=== PATIENT | female | born 1940 | race Caucasian/White ===

== ENCOUNTER 2017-11-24 13:28 | Day surgery (SDC) | payer MEDICARE, OTHER ==
[2006-03-29 14:52] VITALS: BP 154/82
[~2017-11-24] VITALS: Ht 152.4 cm; Wt 45.7 kg
[~2017-11-24 13:28] MED LIST: ACIPHEX20 MG PO; ADVAIR 250/28 DISKU1 IH; AMOXICILLIN 8751 TAB PO; ASACOL 400400 MG/TAB PO; CALCIUM 500500 M2 PO; CALCIUM 600MG+D1 TAB PO; CALCIUM CHELAT200 MG PO; DIFLUCAN 100MG100 MG PO; DIFLUCAN200 MG PO; FLONASE NASAL S16 GM NAS; FLUTICASON0.05 MG/Ac NS; FOSAMAX5 MG PO; IMURAN 50MG TAB50 MG PO; IRON TABLETS325 MG PO; LEVAQUIN 5500 MG/TA1 PO; LEVAQUIN 750MG750 M1 PO; LEVAQUIN 750MG750 MG PO; LIALDA 1.2 GM1.2 GM PO; MOTRIN 200200 MG/TAB PO; NATURAL SENNA8.6 MG PO; NEXIUM 40MG40 MG PO; NORCO 325 MG-51 TAB PO; NORCO 325 MG-7.1 TAB PO; NORCOELIX PO; OYSTER CALCIUM500 M1 PO; PHENERGAN W/CO120 M1 PO; PREDNISONE20 MG PO; REGLAN 10MG10 MG/TAB PO; RT ADVAIR 128 DISKUS IH; RT ADVAIR 228 DISKUS IH; SIMPONI50 MG/0.5 IM; SINGULAIR10 MG PO; VENTOLIN0.09 MG IH; VITAMIN C500 MG PO; VITAMIN D1000 IU PO; ZITHROMAX500 M2 PO; ZYRTEC 10MG10 MG PO; [UNRECOGNIZED DRUG - OTHER] PO
[2017-11-24 14:04] VITALS: BP 137/76; PULSE 73; TEMP 97.7
[2017-11-24] MEDS ORDERED: VITAMIN C500 MG PO (14:15)
[2017-11-24] MEDS ORDERED: ACIPHEX20 MG PO (14:15)
[2017-11-24] MEDS ORDERED: SINGULAIR 110 MG/TAB PO (14:15)
[2017-11-24] MEDS ORDERED: FOSAMAX 70MG TA70 MG PO (14:16)
[2017-11-24] MEDS ORDERED: VANCOCIN H125 MG/CAP PO (14:17)
[2017-11-24] MEDS ORDERED: NORCO 325 MG-51 TAB PO (14:17)
[2017-11-24] MEDS ORDERED: LIALDA 1.2 GM1.2 GM PO (14:17)
[2017-11-24 15:10] VITALS: BP 115/72; PULSE 71; TEMP 97.8
[2017-11-24 15:15] VITALS: BP 113/88; PULSE 83
[2017-11-24 15:30] VITALS: BP 125/79; PULSE 70
== END 2017-11-24 15:45 ==
LOC: SDCO 13:28
DX: K51.00 Ulcerative (chronic) pancolitis without complications (principal); A04.72 Enterocolitis due to Clostridium difficile, not specified as recurrent; K52.9 Noninfective gastroenteritis and colitis, unspecified; J45.909 Unspecified asthma, uncomplicated; K21.9 Gastro-esophageal reflux disease without esophagitis; D64.9 Anemia, unspecified; Z79.899 Other long term (current) drug therapy
CPT/HCPCS: J2250; J3010

== ENCOUNTER 2017-12-11 10:38 | Emergency (ER) | payer MEDICARE, OTHER ==
[2006-03-29 14:52] VITALS: BP 154/82
[~2017-12-11] VITALS: Ht 149.9 cm; Wt 44.5 kg
[~2017-12-11 10:38] MED LIST changes: +FOSAMAX 70MG TA70 MG PO; +SINGULAIR 110 MG/TAB PO; +VANCOCIN H125 MG/CAP PO
[2017-12-11 11:20] LABS: HEMATOCRIT 38.2 % (37.0-47.0); HEMOGLOBIN 12.9 g/dl (12.5-16.0); MEAN CELL VOLUME 85 fl (80.0-100.0); MEAN CORPUSCULAR HEMOGLOBIN 29 pg (27.0-31.0); MEAN CORPUSCULAR HGB CONC 34 g/dl (33.0-37.0); MEAN PLATELET VOLUME 11.1 fl (7.4-10.4); PLATELET COUNT 196 K/mm3 (130-400); RED BLOOD COUNT 4.49 M/mm3 (4.10-5.30); REDCELL DISTRIBUTION WIDTH-CV 15.9 % (11.5-14.5)
[2017-12-11 11:35] LABS: ALBUMIN 3.2 gm/dL (3.5-5.0); BILIRUBIN,TOTAL 0.8 mg/dL (0.0-1.0); CALCIUM 8.6 mg/dL (8.4-10.2); CREATININE, serum 1.04 mg/dL (0.52-1.25); POTASSIUM 3.9 mmol/L (3.4-5.0); TOTAL PROTEIN 6.9 gm/dL (6.4-8.2)
[2017-12-11 11:51] LABS: C-REACTIVE PROTEIN 26.3 mg/dL (0.0-0.9)
[2017-12-11 12:54] LABS: BAND 36 % (0-10); LYMPHOCYTE 1 % (20.0-51.0); NEUTROPHILS 62 % (42.0-75.2); PLATELET ESTIMATE NORMAL (NORMAL)
[2017-12-11] MEDS ORDERED: LEVAQUIN 750MG750 M1 PO (13:27)
[2017-12-11 13:36] VITALS: BP 143/76; PULSE 120; TEMP 99.8
== END 2017-12-11 13:38 | disposition home or self-care (01) ==
LOC: COL.ER 10:38
PROVIDERS: Emergency Medicine
DX: J18.9 Pneumonia, unspecified organism (principal); E87.1 Hypo-osmolality and hyponatremia; F17.210 Nicotine dependence, cigarettes, uncomplicated; Z79.52 Long term (current) use of systemic steroids
CPT/HCPCS: J2270; J2405; J7030; Q9967

== ENCOUNTER 2018-06-29 10:41 | Day surgery (SDC) | payer MEDICARE, OTHER ==
[2006-03-29 14:52] VITALS: BP 154/82
[~2018-06-29] VITALS: Ht 152.4 cm; Wt 50.5 kg
[2018-06-29] MEDS ORDERED: PRILOSEC 20MG20 MG PO (11:07)
[2018-06-29] MEDS ORDERED: IMURAN 50MG TAB50 MG PO (11:10)
[2018-06-29] MEDS ORDERED: RT ADVAIR 228 DISKUS IH (11:12)
[2018-06-29] MEDS ORDERED: PROAIR HFA0.09 MG/AC IH (11:14)
[2018-06-29] MEDS ORDERED: NYSTATIN OR100 MU/ML PO (11:21)
[2018-06-29] MEDS ORDERED: OS-CAL 500 + D1 TAB PO (11:21)
[2018-06-29 11:45] VITALS: BP 151/101; PULSE 72; TEMP 98
[2018-06-29 12:55] VITALS: BP 128/73; PULSE 75; TEMP 98
[2018-06-29 13:10] VITALS: BP 115/85; PULSE 70
[2018-06-29 13:25] VITALS: BP 130/70; PULSE 72
== END 2018-06-29 13:45 | disposition home or self-care (01) ==
LOC: SDCO 10:41
DX: K21.9 Gastro-esophageal reflux disease without esophagitis (principal); K44.9 Diaphragmatic hernia without obstruction or gangrene; R07.9 Chest pain, unspecified; K51.90 Ulcerative colitis, unspecified, without complications; Z79.899 Other long term (current) drug therapy; J45.909 Unspecified asthma, uncomplicated; D64.9 Anemia, unspecified; M81.0 Age-related osteoporosis without current pathological fracture; I49.9 Cardiac arrhythmia, unspecified
CPT/HCPCS: J2250; J3010; J7030

== ENCOUNTER → 2020-12-09 | Outpatient (CLI) | payer MEDICARE, OTHER ==
[~2020-12-09] MED LIST changes: +NYSTATIN OR100 MU/ML PO; +OS-CAL 500 + D1 TAB PO; +PRILOSEC 20MG20 MG PO; +PROAIR HFA0.09 MG/AC IH
== END ==
LOC: COL.CARD 11:30
DX: R00.2 Palpitations (principal)

== ENCOUNTER → 2020-12-17 | Outpatient (CLI) | payer MEDICARE, OTHER | LOC: COL.VAS 13:53 | DX: R55 Syncope and collapse (principal); R42 Dizziness and giddiness; R00.2 Palpitations ==

== ENCOUNTER → 2021-01-29 | Outpatient (CLI) | payer MEDICARE, OTHER | LOC: COL.VAS 12:20 | DX: I08.0 Rheumatic disorders of both mitral and aortic valves (principal); I25.3 Aneurysm of heart; I49.3 Ventricular premature depolarization ==

== ENCOUNTER 2021-06-09 16:52 | Outpatient (RCR) | payer MEDICARE, OTHER | END 2021-07-09 | disposition home or self-care (01) | LOC: WSST | DX: R13.0 Aphagia (principal); K21.9 Gastro-esophageal reflux disease without esophagitis ==

== ENCOUNTER → 2021-06-24 | Outpatient (CLI) | payer MEDICARE, OTHER | LOC: COL.RAD 09:12 | DX: K51.919 Ulcerative colitis, unspecified with unspecified complications (principal); K21.9 Gastro-esophageal reflux disease without esophagitis ==

== ENCOUNTER 2023-07-01 11:28 | Inpatient (IN) | payer MEDICARE, OTHER ==
[~2023-07-01] VITALS: Ht 144.8 cm; Wt 33.1 kg
[~2023-07-01 11:28] MED LIST changes: +DOXYCYCLINE 10100 MG PO; +PRIL40 PO; +VITAMIN D362.5 MC1 PO; +ZOFRAN ODT4 MG PO; +ZOFRAN8 MG PO
[2023-07-01 12:52] LABS: BASO % 0.2 % (0.0-2.0); EOS % 0.1 % (0.0-4.0); GRAN # 10.3 K/mm3 (1.4-6.5); GRAN % 85.4 % (42.2-75.2); HEMOGLOBIN 10.6 g/dl (12.5-16.0); LYMPH # 1.2 K/mm3 (1.2-3.4); MEAN CELL VOLUME 88 fl (80.0-100.0); MEAN CORPUSCULAR HEMOGLOBIN 28 pg (27-31); MEAN CORPUSCULAR HGB CONC 32 g/dl (33.0-37.0); MEAN PLATELET VOLUME 9.3 fl (7.4-10.4); MONO # 0.5 K/mm3 (0.1-0.6); MONO % 3.9 % (1.7-9.3); PLATELET COUNT 368 K/mm3 (130-400); REDCELL DISTRIBUTION WIDTH-CV 16.5 % (11.5-14.5)
[2023-07-01 12:57] LABS: HEMATOCRIT 33.5 % (37.0-47.0)
[2023-07-01 13:06] LABS: ALANINE AMINOTRANSFERASE 6 U/L (0-55); ALBUMIN 2.1 gm/dL (3.4-4.8); ALKALINE PHOSPHATASE 96 U/L (40-150); ANION GAP 11 mmol/L (7-16); AST,SGOT 16 U/L (5-34); BILIRUBIN,TOTAL 0.3 mg/dL (0.2-1.2); BLOOD UREA NITROGEN 10 mg/dL (10-20); C-REACTIVE PROTEIN 8.32 mg/dL (0.00-0.50); CALCIUM 8.9 mg/dL (8.4-10.2); CARBON DIOXIDE 33 mmol/L (23-31); CHLORIDE 98 mmol/L (98-107); CREATININE, serum 0.66 mg/dL (0.57-1.11); GLUCOSE 92 mg/dL (70-99); POTASSIUM 3.3 mmol/L (3.5-4.5); SODIUM 142 mmol/L (136-145); TOTAL PROTEIN 6.3 gm/dL (6.2-8.1)
[2023-07-01 13:13] LABS: TROPONIN-I < 0.010 ng/mL (0.00-0.033)
[2023-07-01 16:44] VITALS: BP 135/63; PULSE 82; TEMP 97.7
[2023-07-01 17:11] VITALS: BP_SYST 135
--- NOTE | 2023-07-01 17:30 | NUR ---
CALL SERVICE FOR WOUND OFFICE CALLED AND INFORMED OF CONSULT, PER ANSWERING SERVICE CONSULT TO BE PASSED ON TO WOUND CARE OFFICE.
[2023-07-01] MEDS ORDERED: NATURAL IRON65 MG (17:53)
[2023-07-01] MEDS ORDERED: K-DUR20 MEQ PO (17:53)
[2023-07-01] MEDS ORDERED: VITAMIN D362.5 MC1 PO (17:54)
[2023-07-01] MEDS ORDERED: NORCO 325 MG-51 TAB PO (17:55)
--- NOTE | 2023-07-01 18:35 | NUR ---
PATIENT REPOSITIONED AND SUCTIONED D/T MUCOUS IN THE BACK OF HER THROAT SHE WAS UNABLE TO CLEAR ON HER OWN. PATIENT REFUSED ORAL CARE, SOME ORAGEL APPLIED TO LIPS, PATIENT HAD 1 LOOSE BM, PATIENT CLEANED, LINEN CHANGED, NEHA CARE PROVIDED. CALL LIGHT WITHIN REACH, FALL PRECAUTIONS IN PLACE, ALMANZA AND PICC LINE PATENT.
--- NOTE | 2023-07-01 18:38 | NUR ---
MD INFORMED PATIENT COMPLAINING OF ABDOMINAL PAIN TO THE LLQ RATED 9/10 ON NUMERIC PAIN SCALE. PATIENT REFUSING TO DRINK MIRALAX AND POTASSIUM SUPPLEMENT D/T NAUSEA. IV ANTIEMETIC GIVEN. MD TO PLACE NEW ORDERS.
--- NOTE | 2023-07-01 18:43 | NUR ---
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
[2023-07-01 19:51] VITALS: BP 116/54; PULSE 78; TEMP 98
[2023-07-01 23:15] VITALS: BP 120/62; PULSE 79; TEMP 97.5
[2023-07-02] VITALS (11 sets, daily range): BP systolic 101–157; BP diastolic 56–69; PULSE 72–94; TEMP 97.5–98.3
--- NOTE | 2023-07-02 05:58 | NUR ---
Pt assessment completed at 2015. A&Ox4. Pt complaining of some nausea. Potasium given PO and unable to hold all the medication due to light amount of emesis. Fleet enema administered and patient didn't feel any need to use the bathroom at first, but she had three BM of moderate amounts of soft stool. Pt reported with decreased discomfort on her abdomen, and denied any more episodes of nausea. Pt having productive cough with yellow and thick sputum. Belongings and call light are within reach.
[2023-07-02 07:33] LABS: HEMOGLOBIN 10.2 g/dl (12.5-16.0); MEAN CELL VOLUME 89 fl (80.0-100.0); MEAN CORPUSCULAR HEMOGLOBIN 28 pg (27-31); MEAN CORPUSCULAR HGB CONC 31 g/dl (33.0-37.0); MEAN PLATELET VOLUME 9.5 fl (7.4-10.4); PLATELET COUNT 357 K/mm3 (130-400); RED BLOOD COUNT 3.68 M/mm3 (4.10-5.30)
[2023-07-02 07:37] LABS: HEMATOCRIT 32.9 % (37.0-47.0)
[2023-07-02 07:57] LABS: CALCIUM 8.7 mg/dL (8.4-10.2); CREATININE, serum 0.61 mg/dL (0.57-1.11); MAGNESIUM 1.9 mg/dL (1.6-2.6); PHOSPHOROUS 4.3 mg/dL (2.3-4.7); POTASSIUM 3.3 mmol/L (3.5-4.5)
--- NOTE | 2023-07-02 10:12 | NUR ---
LAB CALLED WITH CRITICAL VALUE BLOOD GLUCOSE OF 47. NO PT HISTORY OF HYPOGLYCEMIA. CALL PLACED TO HOSPITALIST. ORDERED HYPOGLYCEMIC PROTOCOL. PT STATED SHE WAS UNABLE TO CHEW AND KEEP DOWN THE GLUCOSE TABLETS AND WAS SPITTING UP THE ORANGE JUICE PREVIOUSLY GIVEN. 12.5MG DEXTROSE 50% WATER GIVEN IV. GLUCOSE RECHECKED 15MINUTES LATER AND WAS 96. PT WAS ASYMPTOMATIC DURING HYPOGLYCEMIC EPISODE, DID EAT HER OATMEAL WITH SUGAR ADDED FRO BREAKFAST WELL.
--- NOTE | 2023-07-02 11:53 | NUR ---
PT GIVEN AN ENEMA OVERNIGHT AND HAS HAD A TOTAL OF FOUR BM'S SINCE THEN. PT CONTINUES ON MIRALAX. LACTULOSE WAS DISCONTINUED THIS MORNING PER HOSPITALIST. PT STILL FREQUENTLY COUGHS AND IS SPITTING UP THICK YELLOW/WHITE PHLEM. IS TOLERATING FLUIDS AND SOME FOODS.
--- NOTE | 2023-07-02 13:41 | NUR ---
IV SITE TO R AC WAS DISPLACED ACCIDENTALLY, THIS NURSE DISCONTINUED, THIS NURSE ATTEMPTED TO ACCESS IV SITE WELL ANOTHER NURSE AND AIVS, UNSUCCESSFUL. CALL PLACED TO HOSPITALIST TO REQUEST PO ANTIBIOTICS FOR THE PT. HOSPITALIST STATED HE WILL PUT IN NEW ORDERS.
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
--- NOTE | 2023-07-02 18:45 | NUR ---
PATIENT RESTING IN BED WITH TV ON WITH FAMILY FRIEND AT BEDSIDE WITH NO ACUTE DISTRESS NOTED. PATIENT ON ROOM AIR. BEDSIDE SHIFT REPORT COMPLETED. ALL NEEDS MET. BED IN LOW POSITION WITH WHEELS LOCKED WITH RAILS UP X3 AND CALL LIGHT WITHIN REACH.
--- NOTE | 2023-07-02 19:56 | NUR ---
PATIENT RESTING IN BED WITH TV ON WITH FAMILY FRIEND AT BEDSIDE WITH NO ACUTE DISTRESS NOTED. PATIENT ON ROOM AIR. ASSESSMENT COMPLETED. PATIENT TOELRATED WELL. PATIENT DENIES ANY NEEDS AT THIS TIME. BED IN LOW POSITION WITH WHEELS LOCKED WITH RAILS UP X3 AND CALL LIGHT WITHIN REACH. BED ALARM ON.
--- NOTE | 2023-07-02 21:12 | NUR ---
PATIENT RESTING IN BED WITH TV ON WITH FAMILY FRIEND AT BEDSIDE WITH NO ACUTE DISTRESS NOTED. PATIENT ON ROOM AIR. MEDICATION ADMINISTRATION COMPLETED AT THIS TIME. PATIENT TOLERATED WELL. APPLE SAUCE GIVEN FOR SNACK. ALL NEEDS MET. BED IN LOW POSITION WITH WHEELS LOCKED WITH RAILS UP X3 AND CALL LIGHT WITHIN REACH. BED ALARM ON.
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
[2023-07-03] VITALS (12 sets, daily range): BP systolic 124–148; BP diastolic 56–68; PULSE 71–96; TEMP 97.5–97.7
--- NOTE | 2023-07-03 04:35 | NUR ---
PATIENT SITTING UP ON EDGE OF BED WHILE O2 SAT CHECKED BY PRIMARY NURSE DUE TO PCT INFORMING PRIMARY NURSE OF O2 SAT OF 85% PATIENT COUGHED AND EXPELLED SOME PHYLEM THAT WAS WHITISH- YELLOW. O2 SAT NOW 95% ON ROOM AIR.
--- NOTE | 2023-07-03 10:36 | NUR ---
SW met with patient to complete intake, patients daughter in law (Kaylynn [phone]) was presented and permitted to remain in room during the intake by patient. Patient confirmed that her PCP is Dr Oh and she uses [facility] for her prescriptions. Patient shared that she currently lives in her home, alone in [place]. Patient reports that she has been independent in her home with ADLs and reports no current DMEs. Patient also confirmed NOK as her daughter Jazmin Gould [phone]. Patient and her [id number] both expressed no interest in long-term referrals, as patient's family is in route from [place] to come and support patient, and possible relocation with family. Patient is excepting to discharge with family, pending further medical recommendations at this time. This SW will leave this update with SW team for possible assistance on supportive services for patient and/or family.
--- NOTE | 2023-07-03 19:10 | NUR ---
PATIENT RESTING IN BED WITH TV OFF WITH NO FAMILY PRESENT WITH NO ACUTE DISTRESS NOTED. PATIENT ON ROOM AIR. ASSESSMENT COMPLETED. PATIENT REQUESTED APPLE SAUCE AND WAS GIVEN. PATIENT TOLERATED WELL. ALL NEEDS MET. BED IN LOW POSITION WITH WHEELS LOCKED WITH RAILS UP X3 AND CALL LIGHT WITHIN REACH. BED ALARM ON.
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
[2023-07-04] VITALS (7 sets, daily range): BP systolic 141–164; BP diastolic 57–60; PULSE 72–90; TEMP 97.4–98.4
[2023-07-04 07:29] LABS: EOS % 0.3 % (0.0-4.0); GRAN # 4.5 K/mm3 (1.4-6.5); GRAN % 77.7 % (42.2-75.2); HEMOGLOBIN 10.1 g/dl (12.5-16.0); LYMPH % 16.9 % (20.0-51.0); MEAN CELL VOLUME 87 fl (80.0-100.0); MEAN CORPUSCULAR HEMOGLOBIN 27 pg (27-31); MEAN CORPUSCULAR HGB CONC 31 g/dl (33.0-37.0); MEAN PLATELET VOLUME 9.5 fl (7.4-10.4); MONO # 0.3 K/mm3 (0.1-0.6); MONO % 4.8 % (1.7-9.3); PLATELET COUNT 341 K/mm3 (130-400)
[2023-07-04 07:31] LABS: HEMATOCRIT 32.2 % (37.0-47.0)
[2023-07-04 07:45] LABS: CALCIUM 8.8 mg/dL (8.4-10.2); CREATININE, serum 0.59 mg/dL (0.57-1.11); POTASSIUM 3.9 mmol/L (3.5-4.5)
--- NOTE | 2023-07-04 08:00 | NUR ---
PATIENT WITH A BLOOD SUGAR OF 67, PER PATIENT SHE HAS ATE SOME OATMEAL AND CAN NOT INTAKE ANYTHIGN ELSE. PER PATIENT JUICE UPSETS HER STOMACH AND IT IS TOO SMALL FOR ANYTHING LARGER. PATINET INFORMED WE WILL BE RECHECKING HER BLOOD SUGAR SOON BECAUSE IT IS LOW. PATIENTS CALL LIGHT WITHIN REACH.
--- NOTE | 2023-07-04 10:30 | NUR ---
USAMA GIVEN ORAL ANTX WITH PUDDING REQUESTED, THEN CALL RN A FEW MINUTES LATER STATING SHE HAD AN EPISODE OF EMESIS "BECAUSE OF WHAT YOU GAVE ME." PATIENT TOLD RN SHE IS REALLY UPSET WITH HER FAMILY AND WHEN SHE IS EMOTIONAL SHE CAN NOT KEEP ANYTHIGN DOWN. EMESIS BASIN AND TRASH CAN CHECKED, NO PILLS FOUND. USAMA IS SITTING UP IN RECLINER, CALL LIGHT WITHIN REACH.
--- NOTE | 2023-07-04 12:10 | NUR ---
PATIENT TOLD RN THAT BECAUSE SHE IS STILL EMOTIIONAL, SHE THREW UP HER PAIN PILL. RN AGAIN CHECKED EMESIS BASIN AND TRASH, NO MEDICATION IN SITE. PATIENT SITTING UP IN RECLINER, HER DAUGHTER IN LAW AT BEDSIDE. PATIENT AWATING MEETING WITH NEVA.
[2023-07-04] MEDS ORDERED: ZITHROMAX500 M2 PO (12:15)
[2023-07-04] MEDS ORDERED: CLEOCIN HCL300 MG PO (12:16)
--- NOTE | 2023-07-04 14:45 | NUR ---
USAMA HOME MEDICATIONS RETURNED TO HER. PATIENT GIVEN DISCHARGE INSTRUCTIONS AND EDUCATION AND VOICED UNDERSTANDING OF THE FOLLOW UP APTS SHE NEEDS TO MAKE AND NEW MEDICATIONS. PATIENT WAS TAKEN VIA WHEELCHARI TO ER ENTRANCE WHERE SHE LEFT IN STABLE CONDITION WTIH HER DAUGHTERS SISTER IN LAW.
--- NOTE | 2023-07-04 17:08 | NUR ---
harvest worker field crop met with patient and daughter in law, Kaylynn. Patient is discharging home and declines home health. Kaylynn stated that she will stay with patient until her daughter arrives from [place]. Worker advised that therapy recomends someone stay with patient for care needs. Worker presented IM and signature obtained. Worker provided Kaylynn with a copy of the IM. Discharge plan: Home with family.
== END 2023-07-04 14:45 | disposition home or self-care (01) | DRG 193 ==
LOC: COL.ER 11:28 → MEDICAL 15:37
PROVIDERS: Internal Medicine; Nurse Practitioner; ADMIT Internal Medicine
DX: J18.9 Pneumonia, unspecified organism (principal); E43 Unspecified severe protein-calorie malnutrition; L89.153 Pressure ulcer of sacral region, stage 3; K51.90 Ulcerative colitis, unspecified, without complications; Z68.1 Body mass index [BMI] 19.9 or less, adult; Z66 Do not resuscitate; K59.00 Constipation, unspecified; E87.6 Hypokalemia; R53.81 Other malaise; J44.9 Chronic obstructive pulmonary disease, unspecified; Z88.8 Allergy status to other drugs, medicaments and biological substances; Z79.891 Long term (current) use of opiate analgesic; Z90.710 Acquired absence of both cervix and uterus; Z79.899 Other long term (current) drug therapy; Z23 Encounter for immunization
CPT/HCPCS: J0456; J0696; J1644; J2405; J7040; J7050